=== PATIENT | male | born 1985 | race Caucasian/White ===

== ENCOUNTER 2020-11-18 12:57 | Inpatient (IN) | payer OTHER ==
[~2020-11-18] VITALS: Ht 198.1 cm; Wt 104.1 kg
[2020-11-18 13:30] LABS: ALANINE AMINOTRANSFERASE 22 U/L (0-55); ALBUMIN 3.8 GM/DL (3.2-4.5); ALKALINE PHOSPHATASE 62 U/L (40-136); BILIRUBIN,TOTAL 0.5 MG/DL (0.1-1.0); BUN/CREATININE RATIO 20; CALCIUM 8.8 MG/DL (8.5-10.1); CARBON DIOXIDE 21 MMOL/L (21-32); CHLORIDE 103 MMOL/L (98-107); CREATININE SERUM 2.61 MG/DL (0.60-1.30); GFR ESTIMATED 28; GLUCOSE 140 MG/DL (70-105); POTASSIUM 4.6 MMOL/L (3.6-5.0); SODIUM 139 MMOL/L (135-145); TOTAL PROTEIN 5.8 GM/DL (6.4-8.2)
[2020-11-18 13:33] LABS: BASOPHILS % (AUTO) 0 % (0-10); EOSINOPHILS % (AUTO) 0 % (0-10); HEMATOCRIT 30 % (40-54); HEMOGLOBIN 10.7 G/DL (13.3-17.7); LYMPHOCYTES # (AUTO) 2.7 X 10^3 (1.0-4.0); LYMPHOCYTES % (AUTO) 11 % (12-44); MEAN CORPUSCULAR HEMOGLOBIN 31 PG (25-34); MEAN CORPUSCULAR HGB CONC 35 G/DL (32-36); MEAN CORPUSCULAR VOLUME 87 FL (80-99); MEAN PLATELET VOLUME 10.5 FL (7.4-10.4); MONOCYTES % (AUTO) 11 % (0-12); NEUTROPHILS # (AUTO) 19.4 X 10^3 (1.8-7.8); NEUTROPHILS % (AUTO) 77 % (42-75); PLATELET COUNT 241 10^3/uL (130-400); WHITE BLOOD COUNT 25.1 10^3/uL (4.3-11.0)
--- NOTE | 2020-11-18 13:33 | ED General ---
General Chief Complaint: Psych/Social Disorder Stated Complaint: SUICIDE ATTEMPT Source of Information: Patient History of Present Illness Date Seen by Provider: November 18, 2020 Time Seen by Provider: 12:40 Initial Comments Patient is a 35-year-old right-handed male who presents 2 days post suicide attempt with 14 cm deep gaping laceration distribution with central forearm forearm. Patient states he consult 2 days ago and attempt to end his life. He initially cut himself in the bathroom and then passed out on the way going to his bedroom. He did not awake until this morning at which time he contacted EMS. Patient reports dizziness and lightheadedness. He is tachycardic at 113 and mildly hypotensive with a systolic blood pressure 108. He denies taking alcohol or coingestants at time of suicide attempt. He states he lost a considerable amount of blood prior to passing out. No other acute symptoms or complaints. Timing/Duration: 2-3 Days Severity: Moderate Modifying Factors: improves with Other Associated Systoms: Other Allergies and Home Medications Allergies Coded Allergies: No Known Drug Allergies (Unverified , 11/18/20) Patient Home Medication List Home Medication List Reviewed: Yes Review of Systems Review of Systems Constitutional: see HPI EENTM: see HPI Respiratory: see HPI Cardiovascular: see HPI Gastrointestinal: see HPI Genitourinary: see HPI Musculoskeletal: see HPI Skin: see HPI Psychiatric/Neurological: See HPI Hematologic/Lymphatic: See HPI Immunological/Allergic: see HPI All Other Systems Reviewed Negative Unless Noted: Yes Past Srnxggx-Dhcraj-Fdatmj Hx Past Med/Social Hx: Reviewed Nursing Past Med/Soc Hx Physical Exam Vital Signs Vital Signs - First Documented 11/18/20 13:00 Temp 36.8 Pulse 120 Resp 16 B/P (MAP) 104/58 (73) Pulse Ox 100 O2 Delivery Room Air Capillary Refill : Height, Weight, BMI Height: '" Weight: lbs. oz. 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 Norm as Tested Skin: Normal Color Lymphatic: No Adenopathy Focused Exam Sepsis Stage: Sepsis Possible Source: Skin/Soft Tissue Lactate Level 11/18/20 14:50: Lactic Acid Level 3.94*H Time of Focused Exam: 13:00 Respiratory: Lungs Clear Cardiovascular: Tachycardia Capillary Refill: NONE Skin: other Lactic Acid Level Laboratory Tests Test 11/18/20 14:50 Lactic Acid Level 3.94 MMOL/L (0.50-2.00) *H Within 3hrs of presentation: Admin fluids, Admin ABX, Blood cultures prior to ABX's, Focus exam, Lactate level Progress/Results/Core Measures Suspected Sepsis SIRS Temperature: Pulse: Respiratory Rate: Laboratory Tests 11/18/20 13:02: White Blood Count 25.1H Blood Pressure / Mean: 11/18/20 14:50: Lactic Acid Level 3.94*H Laboratory Tests 11/18/20 13:02: Creatinine 2.61H, Platelet Count 241, Total Bilirubin 0.5 Results/Orders Lab Results Laboratory Tests Test 11/18/20 13:02 11/18/20 13:20 11/18/20 14:50 Range/Units White Blood Count 25.1 H 4.3-11.0 10^3/uL Red Blood Count 3.48 L 4.35-5.85 10^6/uL Hemoglobin 10.7 L 13.3-17.7 G/DL Hematocrit 30 L 40-54 % Mean Corpuscular Volume 87 80-99 FL Mean Corpuscular Hemoglobin 31 25-34 PG Mean Corpuscular Hemoglobin Concent 35 32-36 G/DL Red Cell Distribution Width 12.8 10.0-14.5 % Platelet Count 241 130-400 10^3/uL Mean Platelet Volume 10.5 H 7.4-10.4 FL Immature Granulocyte % (Auto) 1 % Neutrophils (%) (Auto) 77 H 42-75 % Lymphocytes (%) (Auto) 11 L 12-44 % Monocytes (%) (Auto) 11 0-12 % Eosinophils (%) (Auto) 0 0-10 % Basophils (%) (Auto) 0 0-10 % Neutrophils # (Auto) 19.4 H 1.8-7.8 X 10^3 Lymphocytes # (Auto) 2.7 1.0-4.0 X 10^3 Monocytes # (Auto) 2.7 H 0.0-1.0 X 10^3 Eosinophils # (Auto) 0.0 0.0-0.3 10^3/uL Basophils # (Auto) 0.0 0.0-0.1 10^3/uL Immature Granulocyte # (Auto) 0.2 H 0.0-0.1 10^3/uL Neutrophils % (Manual) 80 % Lymphocytes % (Manual) 9 % Monocytes % (Manual) 9 % Band Neutrophils 2 % Hypochromasia 1+ Sodium Level 139 135-145 MMOL/L Potassium Level 4.6 3.6-5.0 MMOL/L Chloride Level 103 98-107 MMOL/L Carbon Dioxide Level 21 21-32 MMOL/L Anion Gap 15 H 5-14 MMOL/L Blood Urea Nitrogen 53 H 7-18 MG/DL Creatinine 2.61 H 0.60-1.30 MG/DL Estimat Glomerular Filtration Rate 28 BUN/Creatinine Ratio 20 Glucose Level 140 H 70-105 MG/DL Calcium Level 8.8 8.5-10.1 MG/DL Corrected Calcium 9.0 8.5-10.1 MG/DL Total Bilirubin 0.5 0.1-1.0 MG/DL Aspartate Amino Transf (AST/SGOT) 17 5-34 U/L Alanine Aminotransferase (ALT/SGPT) 22 0-55 U/L Alkaline Phosphatase 62 40-136 U/L Total Creatine Kinase 201 H 30-200 U/L Total Protein 5.8 L 6.4-8.2 GM/DL Albumin 3.8 3.2-4.5 GM/DL Serum Alcohol < 10 <10 MG/DL Urine Opiates Screen NEGATIVE NEGATIVE Urine Oxycodone Screen NEGATIVE NEGATIVE Urine Methadone Screen NEGATIVE NEGATIVE Urine Propoxyphene Screen NEGATIVE NEGATIVE Urine Barbiturates Screen NEGATIVE NEGATIVE Ur Tricyclic Antidepressants Screen NEGATIVE NEGATIVE Urine Phencyclidine Screen NEGATIVE NEGATIVE Urine Amphetamines Screen NEGATIVE NEGATIVE Urine Methamphetamines Screen NEGATIVE NEGATIVE Urine Benzodiazepines Screen NEGATIVE NEGATIVE Urine Cocaine Screen NEGATIVE NEGATIVE Urine Cannabinoids Screen NEGATIVE NEGATIVE Lactic Acid Level 3.94 *H 0.50-2.00 MMOL/L My Orders Orders - DEANDRE PICKETT DO Cbc With Automated Diff (11/18/20 13:04) Comprehensive Metabolic Panel (11/18/20 13:04) Drug Screen Stat (Urine) (11/18/20 13:04) Alcohol (11/18/20 13:04) Creatine Kinase (11/18/20 13:05) Ekg Tracing (11/18/20 13:08) Manual Differential (11/18/20 13:02) Ns Iv 1000 Ml (Sodium Chloride 0.9%) (11/18/20 14:30) Lactic Acid Analyzer (11/18/20 14:24) Blood Culture (11/18/20 14:24) Piperacillin Sodium/Tazobactam (Zosyn Vi (11/18/20 14:30) Ns Iv 1000 Ml (Sodium Chloride 0.9%) (11/18/20 15:00) Blood Culture (11/18/20 14:52) Ns Iv 1000 Ml (Sodium Chloride 0.9%) (11/18/20 15:30) Vancomycin Injection (Vancomycin Injecti (11/18/20 15:45) Medications Given in ED Current Medications Medications Dose Ordered Sig/Iris Route Start Time Stop Time Status Last Admin Dose Admin Piperacillin Sod/ Tazobactam Sod 4.5 gm/Sodium Chloride 100 ml @ 200 mls/hr ONCE ONCE IV 11/18/20 14:30 11/18/20 14:59 DC 11/18/20 15:03 200 MLS/HR Vital Signs/I&O 11/18/20 13:00 Temp 36.8 Pulse 120 Resp 16 B/P (MAP) 104/58 (73) Pulse Ox 100 O2 Delivery Room Air Capillary Refill : Departure Communication (Admissions) Patient with approximately 14 cm left forearm wound with concern for cellulitis. Patient with 25,000 white count, left shift and elevated lactic acid with acute kidney injury. Aggressive IV fluids and broad-spectrum antibiotics given. Patient is clinically stable. No longer voices threats of self-harm. He is excepted to [facility] ICU per Dr. Mar at 15:30. Pseudomonal Risk: No known risk Impression Primary Impression: Severe sepsis Additional Impressions: Cellulitis of left forearm Acute kidney injury Suicidal ideation Disposition: 09 ADMITTED INPATIENT Condition: Stable Admissions Decision to Admit Reason: Admit from ER (General) Decision to Admit/Date: November 18, 2020 Time/Decision to Admit Time: 15:30 DEANDRE PICKETT DO November 18, 2020 13:33
[2020-11-18 13:34] LABS: MONOCYTES # (AUTO) 2.7 X 10^3 (0.0-1.0)
[2020-11-18 13:48] LABS: AMPHETAMINE SCREEN, URINE NEGATIVE (NEGATIVE); BARBITURATE SCREEN URINE NEGATIVE (NEGATIVE); BENZODIAZEPINES SCREEN URINE NEGATIVE (NEGATIVE); CANNABINOID SCREEN, URINE NEGATIVE (NEGATIVE); COCAINE SCREEN URINE NEGATIVE (NEGATIVE); METHADONE STAT NEGATIVE (NEGATIVE); METHAMPHETAMINE SCREEN URINE S NEGATIVE (NEGATIVE); OPIATE SCREEN URINE NEGATIVE (NEGATIVE); OXYCODONE STAT NEGATIVE (NEGATIVE); PROPOXYPHENE STAT NEGATIVE (NEGATIVE); TRICYCLIC ANTIDEPRESSANTS SCRE NEGATIVE (NEGATIVE)
[2020-11-18 13:54] LABS: BAND NEUTROPHILS 2 %; LYMPHOCYTES % (MANUAL) 9 %; MONOCYTES % (MANUAL) 9 %; NEUTROPHILS % (MANUAL) 80 %
[2020-11-18 13:55] LABS: HYPOCHROMASIA 1+
[2020-11-18] MEDS ORDERED: PIPERACILLIN SODIUM/TAZOBACTAM 4.5 GM in NS (IVPB) 100 ML IV ONE (14:30)
[2020-11-18] MEDS ORDERED: NS IV 1000 ML 1,000 ML IV SCH ×3 (15:00→18:30)
[2020-11-18] MEDS: NS IV 1000 ML 1,000 ML IV SCH ×2 (15:02→16:10)
[2020-11-18 15:06] LABS: CREATINE KINASE 201 U/L (30-200)
[2020-11-18] MEDS ORDERED: VANCOMYCIN INJECTION 1,000 MG in NS (IVPB) 250 ML IV ONE (15:45)
[2020-11-18] MEDS ORDERED: VANCOMYCIN 750 MG/NS 250 ML IVPB IV NR ×2 (18:30)
[2020-11-18] MEDS: PIPERACILLIN/TAZO 4.5 GM/NS 100 ML IV SCH ×2 (22:06)
[2020-11-18] MEDS: LACTATED RINGERS 1,000 ML IV SCH ×2 (22:06→23:48)
[2020-11-19] MEDS: LACTATED RINGERS 1,000 ML IV SCH ×4 (02:11→18:37)
[2020-11-19 03:37] LABS: BASOPHILS % (AUTO) 0 % (0-10); EOSINOPHILS # (AUTO) 0.1 10^3/uL (0.0-0.3); EOSINOPHILS % (AUTO) 1 % (0-10); HEMATOCRIT 22 % (40-54); HEMOGLOBIN 7.3 g/dL (13.3-17.7); LYMPHOCYTES # (AUTO) 2.3 10^3/uL (1.0-4.0); LYMPHOCYTES % (AUTO) 20 % (12-44); MEAN CORPUSCULAR HEMOGLOBIN 30 pg (25-34); MEAN CORPUSCULAR HGB CONC 34 g/dL (32-36); MEAN CORPUSCULAR VOLUME 90 fL (80-99); MEAN PLATELET VOLUME 10.3 fL (9.0-12.2); MONOCYTES # (AUTO) 0.9 10^3/uL (0.0-1.0); MONOCYTES % (AUTO) 8 % (0-12); NEUTROPHILS % (AUTO) 70 % (42-75); PLATELET COUNT 148 10^3/uL (130-400); WHITE BLOOD COUNT 11.5 10^3/uL (4.3-11.0)
[2020-11-19 03:51] LABS: CHLORIDE 111 MMOL/L (98-107); POTASSIUM 4.2 MMOL/L (3.6-5.0); SODIUM 141 MMOL/L (135-145)
[2020-11-19 03:53] LABS: CALCIUM 7.3 MG/DL (8.5-10.1); GLUCOSE 103 MG/DL (70-105)
[2020-11-19 03:55] LABS: CARBON DIOXIDE 22 MMOL/L (21-32)
[2020-11-19 03:57] LABS: CREATININE SERUM 1.17 MG/DL (0.60-1.30); GFR ESTIMATED > 60; PHOSPHORUS 2.6 MG/DL (2.3-4.7)
[2020-11-19 03:58] LABS: BUN/CREATININE RATIO 25
[2020-11-19 03:59] LABS: MAGNESIUM 1.6 MG/DL (1.6-2.4)
--- NOTE | 2020-11-19 05:18 | Pulmonary Consultation ---
History of Present Illness History of Present Illness Date Seen by Provider: November 19, 2020 Time Seen by Provider: 05:14 Date of Admission History of Present Illness 35yo presented 2 days post suicide attempt with 14 cm deep gaping laceration distribution with central forearm forearm. He initially cut himself in the bathroom and then passed out on the way going to his bedroom. When he woke up he contacted EMS. Allergies and Home Medications Allergies Coded Allergies: No Known Drug Allergies (Unverified , 11/18/20) Home Medications No Active Prescriptions or Reported Meds Past Cumorek-Eaqeko-Oebajg Hx Past Med/Social Hx: Reviewed Nursing Past Med/Soc Hx Patient Social History Alcohol Use: Occasionally Uses Smoking Status: Never a Smoker 2nd Hand Smoke Exposure: No Recent Infectious Disease Expo: No Recent Hopitalizations: No Have you traveled recently?: No Alcohol Use?: Yes Seasonal Allergies Seasonal Allergies: No Past Medical History Surgeries: Yes Appendectomy Respiratory: No Cardiac: No Neurological: No Genitourinary: No Gastrointestinal: No Musculoskeletal: No Endocrine: No HEENT: No Cancer: No Psychosocial: No Integumentary: No Review of Systems Time Seen by Provider: 05:14 Sepsis Event Evaluation Height, Weight, BMI Height: '" Weight: lbs. oz. kg; 23.85 BMI Method: Exam Exam Vital Signs Date Time Temp Pulse Resp B/P (MAP) Pulse Ox O2 Delivery O2 Flow Rate FiO2 11/19/20 05:00 91 25 103/48 (66) 95 Room Air 11/19/20 04:00 78 18 105/53 (70) 99 Room Air 11/19/20 04:00 98 Room Air 11/19/20 03:00 81 18 97/50 (66) 99 Room Air 11/19/20 02:00 82 17 103/48 (66) 99 Room Air 11/19/20 01:00 85 16 109/54 (72) 99 Room Air 11/19/20 01:00 79 11/19/20 00:00 87 20 108/55 (72) 100 Room Air 11/19/20 00:00 96 Room Air 11/18/20 23:00 90 17 97/53 (68) 97 Room Air 11/18/20 22:00 89 16 97/54 (68) 96 Room Air 11/18/20 21:00 90 18 106/57 (73) 99 Room Air 11/18/20 20:00 97 Room Air 11/18/20 20:00 90 20 112/61 (78) 100 Room Air 11/18/20 19:59 37.1 94 12 107/52 (70) 100 Room Air 11/18/20 19:00 89 14 105/51 (69) 98 Room Air 11/18/20 19:00 87 11/18/20 18:14 97 Room Air 11/18/20 18:00 93 10 109/51 (70) 99 Room Air 11/18/20 16:52 104 16 96/57 98 Room Air 11/18/20 13:00 36.8 120 16 104/58 (73) 100 Room Air I & O 11/19/20 07:00 Intake Total 1600 ml Output Total 600 ml Balance 1000 ml Height & Weight Height: '" Weight: lbs. oz. 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
[2020-11-19] MEDS: PIPERACILLIN/TAZO 4.5 GM/NS 100 ML IV SCH ×6 (05:50→20:57)
--- NOTE | 2020-11-19 07:28 | Diagnostic Imaging Report ---
INDICATION: Dyspnea. EXAMINATION: Portable chest. FINDINGS: The lungs are well-aerated and clear. The heart is not enlarged. No pulmonary edema or hilar adenopathy. No pneumothorax or pleural effusion. No bony abnormalities. IMPRESSION: Normal portable chest. Dictated by: Dictated on workstation # [id number]
[2020-11-19] MEDS: MAGNESIUM 1 GM/100 ML IVPB 100 ML IV SCH (08:11)
--- NOTE | 2020-11-19 09:00 | History & Physical-Hospitalist ---
History of Present Illness HPI/Chief Complaint Pt is a 35yoCM with no known PMH who presented to the ER after a self inflicted laceration in an attempt to kill himself. He states that Tuesday (11/16) he was feeling down and decided he wanted to end his life. He cut his arm deeply. He states he was in and out of consciousness because of the blood loss but awoke and decided to seek care. On arrival he was quite dehydrated and has lost a significant amount of blood. He was also found ot be septic and admitted for IV abx. Today he has no complaints. He denies any thoughts of self harm now. Source: patient Date Seen 11/19/20 Time Seen by a Provider: 08:56 Attending Physician Eber Mar MD PCP No,Local Physician Referring Physician Date of Admission November 18, 2020 at 17:31 Home Medications & Allergies Home Medications Reviewed patient Home Medication Reconciliation performed by pharmacy medication reconciliations cnc technician and/or nursing. Patients Allergies have been reviewed. Allergies Allergies Coded Allergies No Known Drug Allergies (Unverified11/18/20) Patient Social History Marrital Status: single Tobacco Use?: No Smoking Status: Never a Smoker Alcohol Use?: Yes Alcohol type: Beer Alcohol Frequency: Once in a while Pt stated abuse/neglect: No Immunizations Up To Date Influenza Vaccine Up-to-Date: No; Not Current First/Initial COVID19 Vaccinat: Has not received Tetanus Booster (TDap): Less Than 5 Years Current Status Do you have an Advance Directi: No Communicates: Verbally Primary Language: Lithuanian Preferred Spoken Language: Lithuanian Is interpretation needed?: No Past Medical History None Family Medical History Family Hx: Non contributory Review of Systems Constitutional: No chills, No fever EENTM: other (sneezing); No nose congestion, No throat pain Respiratory: No cough, No short of breath Cardiovascular: No chest pain, No edema, No palpitations Gastrointestinal: No abdominal pain, No constipation, No nausea, No vomiting Genitourinary: No dysuria, No frequency Musculoskeletal: no symptoms reported Skin: see HPI Psychiatric/Neurological: See HPI Physical Exam Physical Exam Vital Signs Vital Signs - First Documented 11/18/20 13:00 Temp 36.8 Pulse 120 Resp 16 B/P (MAP) 104/58 (73) Pulse Ox 100 O2 Delivery Room Air Capillary Refill : Less Than 3 Seconds Height, Weight, BMI Height: '" Weight: lbs. oz. kg; 23.85 BMI Method: General Appearance: No Apparent Distress, WD/WN HEENT: PERRL/EOMI, Moist Mucous Membranes Neck: Normal Inspection, Supple Respiratory: Lungs Clear, No Accessory Muscle Use, No Respiratory Distress Cardiovascular: Regular Rate, Rhythm, No Murmur Gastrointestinal: Normal Bowel Sounds, Non Tender, Soft Extremity: No Calf Tenderness, No Pedal Edema, Other (dressing on left forearm, clean and intact) Neurologic/Psychiatric: Alert, Oriented x3 Skin: Normal Color, Warm/Dry Results Results/Procedures Labs Laboratory Tests 11/18/20 13:02 11/19/20 03:10 11/20/20 05:30 Patient resulted labs reviewed. Imaging: Reviewed Imaging Report [facility] [place], [place] NAME: AVA MEHTA [facility] REC#: [id number] PT STATUS: ADM IN : 1985 PHYSICIAN: EBER MAR MD ADMIT DATE: 11/18/20/ICU Draft Date of Exam:11/19/20 CHEST 1 VIEW, AP/PA ONLY INDICATION: Dyspnea. EXAMINATION: Portable chest. FINDINGS: The lungs are well-aerated and clear. The heart is not enlarged. No pulmonary edema or hilar adenopathy. No pneumothorax or pleural effusion. No bony abnormalities. IMPRESSION: Normal portable chest. Dictated on workstation # [id number] Dict: 11/19/20 0722 Trans: 11/19/20 0728 [id number] Interpreted by: VICKY MARTINEZ MD Electronically signed by: Assessment/Plan Admission Diagnosis Severe Sepsis Admission Status: Inpatient Order (span 2 midnights) Reason for Inpatient Admission: see below Assessment and Plan Severe Sepsis Dehydration FAYE Left forearm cellulitis Continue on IV abx Await cultures Lactic acidosis 3.94 on arrival and now resolved Creatinine improved to 1.17 Surgery consulted, appreciate recs Suicide attempt If labs continue to improve will likely be medically appropriate for screening 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
[2020-11-19] MEDS: VANCOMYCIN 1500 MG/NS 500 ML IVPB IV SCH ×4 (09:30→20:30)
[2020-11-19] MEDS ORDERED: VANCOMYCIN 1500 MG/NS 500 ML IVPB IV SCH ×2 (16:00)
--- NOTE | 2020-11-19 20:32 | Consultation - Surgery ---
History of Present Illness History of Present Illness Patient Consulted On(sherine/time) 11/19/20 08:26 Date Seen by Provider: November 19, 2020 Time Seen by Provider: 08:26 History of Present Illness Consult requested by Dr. Mar for self-inflicted laceration to the left forearm Patient is a 35-year-old male who presented to the emergency department in [place] with a self-inflicted laceration to his left forearm. Patient attempted to kill himself. Patient states that he is having financial issues and felt that it was much easier to take his life rather than to continue on. Patient cut his arm deeply with a razor blade and apparently was in and out of cons ciousness. He states that he lost a significant amount of blood due to the bleeding from the wound. When he woke up he decided to call for help and was taken to the emergency department. Right now he denies any ideas of hurting himself. He is got no active bleeding from the left arm. He was found to be septic upon admission and IV biotics were started. He denies any nausea vo miting fever sweats chills shortness of breath or chest pain. Allergies and Home Medications Allergies Coded Allergies: No Known Drug Allergies (Unverified , 11/18/20) Home Medications No Active Prescriptions or Reported Meds Patient Home Medication List Home Medication List Reviewed: Yes Past Iyeprjo-Oioupr-Lmopth Hx Patient Social History Smoking Status: Never a Smoker 2nd Hand Smoke Exposure: No Recent Hopitalizations: No Alcohol Use?: Yes Have you traveled recently?: No Seasonal Allergies Seasonal Allergies: No Surgeries History of Surgeries: Yes Surgeries: Appendectomy Respiratory History of Respiratory Disorde: No Cardiovascular History of Cardiac Disorders: No Neurological History of Neurological Disord: No Genitourinary History of Genitourinary Disor: No Gastrointestinal History of Gastrointestinal Di: No Musculoskeletal History of Musculoskeletal Dis: No Endocrine History of Endocrine Disorders: No HEENT History of HEENT Disorders: No Cancer History of Cancer: No Psychosocial History of Psychiatric Problem: Yes Behavioral Health Disorders: Suicide Attempts Integumentary History of Skin or Integumenta: No Reviewed Nursing Assessment Reviewed/Agree w Nursing PMH: Yes Family Medical History Significant Family History: No Pertinent Family Hx Review of Systems-General Constitutional: No chills, No diaphoresis EENTM: No blurred vision, No double vision Respiratory: No cough, No dyspnea on exertion Cardiovascular: No chest pain, No edema Gastrointestinal: No abdominal pain, No dysphagia Genitourinary: No decreased output, No discharge Musculoskeletal: No back pain, No joint pain Skin: No change in color, No change in hair/nails; other (Open wound left anterior forearm) Psychiatric/Neurological: Denies Anxiety; Depressed All Other Systems Reviewed Negative Unless Noted: Yes (Negative excepted noted.) Physical Exam-General Problems Physical Exam Vital Signs Vital Signs - First Documented 11/18/20 13:00 Temp 36.8 Pulse 120 Resp 16 B/P (MAP) 104/58 (73) Pulse Ox 100 O2 Delivery Room Air Capillary Refill : Less Than 3 Seconds General Appearance: WD/WN, no apparent distress HEENT: PERRL/EOMI, normal ENT inspection Neck: non-tender, supple Respiratory: chest non-tender, no respiratory distress, no accessory muscle use Cardiovascular: regular rate, rhythm, no JVD Gastrointestinal: non tender, soft, no organomegaly Rectal: deferred Back: no CVA tenderness, no vertebral tenderness Extremities: other (Approximately 14 x 2 cm open wound all the way through skin into the subcutaneous tissue. No surrounding erythema no drainage) Skin: normal color Lymphatic: no adenopathy Data Review Labs Laboratory Tests 11/19/20 03:10: White Blood Count 11.5H, Red Blood Count 2.40L, Hemoglobin 7.3L, Hematocrit 22L, Mean Corpuscular Volume 90, Mean Corpuscular Hemoglobin 30, Mean Corpuscular Hemoglobin Concent 34, Red Cell Distribution Width 12.8, Platelet Count 148, Mean Platelet Volume 10.3, Immature Granulocyte % (Auto) 1, Neutrophils (%) (Auto) 70, Lymphocytes (%) (Auto) 20, Monocytes (%) (Auto) 8, Eosinophils (%) (Auto) 1, Basophils (%) (Auto) 0, Neutrophils # (Auto) 8.0H, Lymphocytes # (Auto) 2.3, Monocytes # (Auto) 0.9, Eosinophils # (Auto) 0.1, Basophils # (Auto) 0.0, Immature Granulocyte # (Auto) 0.1, Sodium Level 141, Potassium Level 4.2, Chloride Level 111H, Carbon Dioxide Level 22, Anion Gap 8, Blood Urea Nitrogen 29H, Creatinine 1.17, Estimat Glomerular Filtration Rate > 60, BUN/Creatinine Ratio 25, Glucose Level 103, Calcium Level 7.3L, Phosphorus Level 2.6, Magnesium Level 1.6 Microbiology 11/18/20 Blood Culture - Preliminary, Resulted No growth Assessment/Plan Assessment/Plan Assessment/Plan Suicide attempt Self-inflicted open wound to left anterior forearm 14 x 2 cm Patient with no active bleeding or signs of infection to the wound at this time. We will continue with localized wound care changing dressing daily and as needed. No surgical intervention needed at this time. Clinical Quality Measures Pneumonia: Pseudomonal Risk: No known risk FREDIS SOUSA DO November 19, 2020 20:31
[2020-11-20] MEDS: PIPERACILLIN/TAZO 4.5 GM/NS 100 ML IV SCH ×6 (04:42→20:15)
[2020-11-20] MEDS: LACTATED RINGERS 1,000 ML IV SCH ×4 (04:42→21:45)
[2020-11-20 06:20] LABS: BASOPHILS % (AUTO) 0 % (0-10); EOSINOPHILS # (AUTO) 0.1 10^3/uL (0.0-0.3); EOSINOPHILS % (AUTO) 1 % (0-10); LYMPHOCYTES # (AUTO) 2.1 10^3/uL (1.0-4.0); LYMPHOCYTES % (AUTO) 25 % (12-44); MEAN CORPUSCULAR HEMOGLOBIN 30 pg (25-34); MEAN CORPUSCULAR HGB CONC 34 g/dL (32-36); MEAN CORPUSCULAR VOLUME 91 fL (80-99); MEAN PLATELET VOLUME 10.6 fL (9.0-12.2); MONOCYTES # (AUTO) 0.7 10^3/uL (0.0-1.0); MONOCYTES % (AUTO) 9 % (0-12); NEUTROPHILS # (AUTO) 5.3 10^3/uL (1.8-7.8); NEUTROPHILS % (AUTO) 64 % (42-75); PLATELET COUNT 132 10^3/uL (130-400); WHITE BLOOD COUNT 8.2 10^3/uL (4.3-11.0)
[2020-11-20 06:28] LABS: CHLORIDE 110 MMOL/L (98-107); POTASSIUM 3.9 MMOL/L (3.6-5.0); SODIUM 139 MMOL/L (135-145)
[2020-11-20 06:29] LABS: CALCIUM 7.6 MG/DL (8.5-10.1)
[2020-11-20 06:30] LABS: GLUCOSE 97 MG/DL (70-105)
[2020-11-20 06:31] LABS: CARBON DIOXIDE 24 MMOL/L (21-32)
[2020-11-20 06:33] LABS: HEMATOCRIT 19 % (40-54); HEMOGLOBIN 6.4 g/dL (13.3-17.7); PHOSPHORUS 2.5 MG/DL (2.3-4.7)
[2020-11-20 06:34] LABS: CREATININE SERUM 0.93 MG/DL (0.60-1.30); GFR ESTIMATED > 60
[2020-11-20 06:35] LABS: BUN/CREATININE RATIO 16
[2020-11-20 06:36] LABS: MAGNESIUM 1.8 MG/DL (1.6-2.4)
[2020-11-20] MEDS ORDERED: NS IV 500 ML 500 ML IV SCH ×2 (07:30)
[2020-11-20] MEDS ORDERED: TROUGH ORDER-PHARMACY XX NR (08:00)
[2020-11-20] MEDS ORDERED: NS IV 500 ML 500 ML ONE (08:48)
[2020-11-20 09:12] VITALS: BP 114/69
[2020-11-20 09:34] VITALS: BP 117/73
--- NOTE | 2020-11-20 09:34 | Progress Note - Hospitalist ---
Subjective HPI/CC On Admission Date Seen by Provider: November 20, 2020 Time Seen by Provider: 09:27 Pt is a 35yoCM with no known PMH who presented to the ER after a self inflicted laceration in an attempt to kill himself. He states that Tuesday (11/16) he was feeling down and decided he wanted to end his life. He cut his arm deeply. He states he was in and out of consciousness because of the blood loss but awoke and decided to seek care. On arrival he was quite dehydrated and has lost a significant amount of blood. He was also found ot be septic and admitted for IV abx. Today he has no complaints. He denies any thoughts of self harm now. Subjective/Events-last exam Pt reports doing well. Pain controlled. Discussed his blood count and need for transfusion and he is agreeable. Focused Exam Lactate Level 11/18/20 14:50: Lactic Acid Level 3.94*H 11/18/20 16:39: Lactic Acid Level 2.20*H 11/18/20 18:49: Lactic Acid Level 1.65 Time of Focused Exam: 13:00 Objective Exam Vital Signs Vital Signs Date Time Temp Pulse Resp B/P (MAP) Pulse Ox O2 Delivery O2 Flow Rate FiO2 11/20/20 09:12 36.6 86 14 114/69 99 Room Air Capillary Refill : Less Than 3 Seconds General Appearance: No Apparent Distress, WD/WN Respiratory: Lungs Clear, No Respiratory Distress Cardiovascular: Regular Rate, Rhythm, No Murmur Gastrointestinal: Soft Extremity: Other (arm still in dressing, clean and intact) Neurologic/Psychiatric: Alert, Oriented x3 Results/Procedures Lab Laboratory Tests 11/20/20 05:30 Patient resulted labs reviewed. Imaging: Reviewed Imaging Report Assessment/Plan Assessment and Plan Assess & Plan/Chief Complaint Severe Sepsis, resolved Dehydration FAYE Left forearm cellulitis Continue on IV abx BC with NGTD Creatinine improved to 0.93 Surgery consulted, appreciate recs Suicide attempt Will need blood transfusion so not able medical clear for screening cloud services architect consulted, appreciate assistance Patient open to resources Anemia- acute blood loss Hgb 6.4 1 unit pRBCS ordered DVT ppx: Lovenox on hold for anemia, SCDs Diagnosis/Problems Diagnosis/Problems (1) Suicide attempt Status: Acute (2) Self-inflicted injury Status: Acute (3) Cellulitis of left forearm Status: Acute (4) Severe sepsis Status: Acute (5) Acute kidney injury Status: Acute Clinical Quality Measures Pneumonia: Pseudomonal Risk: No known risk EBER FRANKEL MD November 20, 2020 09:34
[2020-11-20 10:27] VITALS: BP 117/73
[2020-11-20 11:32] VITALS: BP 112/69
[2020-11-20] MEDS: VANCOMYCIN 1500 MG/NS 500 ML IVPB IV SCH ×6 (11:45→21:45)
[2020-11-20] MEDS ORDERED: TETANUS & DIPHTHERIA TOX,ADULT 0.5 ML (TENIVAC) IM ONE (14:00)
--- NOTE | 2020-11-20 17:11 | Progress Note - Surgery ---
Subjective Date Seen by a Provider: November 20, 2020 Time Seen by a Provider: 13:01 Subjective/Events-last exam Patient states he is doing well. He is not having any active bleeding from his left arm. Patient states he is doing well no complaints. His hemoglobins dropped to 6.4 which is anemic but there is no evidence of any active bleeding. Patient denies any nausea vomiting fever sweats chills shortness of breath or chest pain. Not wanting to hurt himself now. Focused Exam Lactate Level 11/18/20 14:50: Lactic Acid Level 3.94*H 11/18/20 16:39: Lactic Acid Level 2.20*H 11/18/20 18:49: Lactic Acid Level 1.65 Time of Focused Exam: 13:00 Objective Exam Vital Signs Date Time Temp Pulse Resp B/P (MAP) Pulse Ox O2 Delivery O2 Flow Rate FiO2 11/20/20 16:19 36.6 96 20 94/53 (67) 98 Room Air 11/20/20 12:30 95 11/20/20 11:47 37.0 84 20 112/69 (83) 98 Room Air 11/20/20 11:46 88 16 98 Room Air 11/20/20 11:32 37.0 84 16 112/69 98 Room Air 11/20/20 10:27 36.4 88 15 117/73 98 Room Air 11/20/20 09:34 36.6 86 14 117/73 98 Room Air 11/20/20 09:12 36.6 86 14 114/69 99 Room Air 11/20/20 09:00 Room Air 11/20/20 07:29 36.8 87 20 112/67 (82) 94 Room Air 11/20/20 06:34 85 11/20/20 03:49 37.6 99 18 110/65 (80) 96 Room Air 11/20/20 01:00 90 11/20/20 00:00 38.0 95 18 113/65 (81) 94 Room Air 11/19/20 21:00 98 Room Air 11/19/20 19:36 37.3 99 18 119/54 (75) 96 Room Air I & O 11/20/20 06:59 Intake Total 1215 ml Output Total 850 ml Balance 365 ml Capillary Refill : Less Than 3 Seconds General Appearance: No Apparent Distress, WD/WN HEENT: PERRL/EOMI, Moist Mucous Membranes Neck: Normal Inspection, Supple Respiratory: Lungs Clear, No Accessory Muscle Use, No Respiratory Distress Cardiovascular: Regular Rate, Rhythm, No JVD Gastrointestinal: non tender, soft, no organomegaly Extremity: No Calf Tenderness, No Pedal Edema, Other (Left open wound no signs of infection no erythema around it. No active bleeding) Neurologic/Psychiatric: Alert, Oriented x3 Skin: Normal Color, Warm/Dry Lymphatic: No Adenopathy Results Lab Laboratory Tests 11/20/20 05:30: White Blood Count 8.2, Red Blood Count 2.11L, Hemoglobin 6.4*L, Hematocrit 19*L, Mean Corpuscular Volume 91, Mean Corpuscular Hemoglobin 30, Mean Corpuscular Hemoglobin Concent 34, Red Cell Distribution Width 12.8, Platelet Count 132, Mean Platelet Volume 10.6, Immature Granulocyte % (Auto) 2, Neutrophils (%) (Auto) 64, Lymphocytes (%) (Auto) 25, Monocytes (%) (Auto) 9, Eosinophils (%) (Auto) 1, Basophils (%) (Auto) 0, Neutrophils # (Auto) 5.3, Lymphocytes # (Auto) 2.1, Monocytes # (Auto) 0.7, Eosinophils # (Auto) 0.1, Basophils # (Auto) 0.0, Immature Granulocyte # (Auto) 0.1, Sodium Level 139, Potassium Level 3.9, Chloride Level 110H, Carbon Dioxide Level 24, Anion Gap 5, Blood Urea Nitrogen 15, Creatinine 0.93, Estimat Glomerular Filtration Rate > 60, BUN/Creatinine Ratio 16, Glucose Level 97, Calcium Level 7.6L, Phosphorus Level 2.5, Magnesium Level 1.8 11/20/20 09:10: Vancomycin Level Trough 12.0 Microbiology 11/18/20 Blood Culture - Preliminary, Resulted No growth Assessment/Plan Assessment/Plan Assessment/Plan Suicide attempt Self-inflicted open wound to left anterior forearm 14 x 2 cm Anemia secondary to acute blood loss. Patient with no active bleeding or signs of infection to the wound at this time. Patient anemic and to receive a unit of red blood cells. Follow hemoglobin. Transfuse as needed. We will continue with localized wound care changing dressing daily and as needed. No surgical intervention needed at this time. Clinical Quality Measures Pneumonia: Pseudomonal Risk: No known risk FREDIS SOUSA DO November 20, 2020 17:11
[2020-11-21] MEDS: PIPERACILLIN/TAZO 4.5 GM/NS 100 ML IV SCH ×4 (04:51→12:38)
[2020-11-21] MEDS: LACTATED RINGERS 1,000 ML IV SCH ×3 (04:52→18:47)
[2020-11-21 05:15] LABS: BASOPHILS % (AUTO) 0 % (0-10); EOSINOPHILS # (AUTO) 0.1 10^3/uL (0.0-0.3); EOSINOPHILS % (AUTO) 2 % (0-10); HEMATOCRIT 22 % (40-54); HEMOGLOBIN 7.4 g/dL (13.3-17.7); LYMPHOCYTES # (AUTO) 1.5 10^3/uL (1.0-4.0); LYMPHOCYTES % (AUTO) 27 % (12-44); MEAN CORPUSCULAR HEMOGLOBIN 30 pg (25-34); MEAN CORPUSCULAR HGB CONC 34 g/dL (32-36); MEAN CORPUSCULAR VOLUME 89 fL (80-99); MEAN PLATELET VOLUME 10.4 fL (9.0-12.2); MONOCYTES # (AUTO) 0.4 10^3/uL (0.0-1.0); MONOCYTES % (AUTO) 8 % (0-12); NEUTROPHILS # (AUTO) 3.5 10^3/uL (1.8-7.8); NEUTROPHILS % (AUTO) 62 % (42-75); PLATELET COUNT 143 10^3/uL (130-400); WHITE BLOOD COUNT 5.6 10^3/uL (4.3-11.0)
[2020-11-21 05:25] LABS: CHLORIDE 111 MMOL/L (98-107); POTASSIUM 3.9 MMOL/L (3.6-5.0); SODIUM 143 MMOL/L (135-145)
[2020-11-21 05:26] LABS: CALCIUM 7.9 MG/DL (8.5-10.1)
[2020-11-21 05:27] LABS: GLUCOSE 103 MG/DL (70-105)
[2020-11-21 05:28] LABS: CARBON DIOXIDE 25 MMOL/L (21-32)
[2020-11-21 05:30] LABS: CREATININE SERUM 0.86 MG/DL (0.60-1.30); GFR ESTIMATED > 60; PHOSPHORUS 3.1 MG/DL (2.3-4.7)
[2020-11-21 05:31] LABS: BUN/CREATININE RATIO 9
[2020-11-21 05:33] LABS: MAGNESIUM 1.8 MG/DL (1.6-2.4)
--- NOTE | 2020-11-21 06:53 | Diagnostic Imaging Report ---
INDICATION: Dyspnea. Comparison made with prior examination 11/19/2020. FINDINGS: The heart size is normal. Some right basilar atelectasis and/or pneumonitis. There is no pleural effusion or pneumothorax. Mediastinum is unremarkable. IMPRESSION: Right basilar atelectasis and/or pneumonitis. Dictated by: Dictated on workstation # [id number]
[2020-11-21 08:26] VITALS: BP 119/70
[2020-11-21] MEDS: VANCOMYCIN 1500 MG/NS 500 ML IVPB IV SCH ×4 (10:31→20:44)
[2020-11-21 11:50] VITALS: BP 115/72
--- NOTE | 2020-11-21 14:33 | Discharge Summary ---
Diagnosis/Chief Complaint Date of Admission November 18, 2020 at 17:31 Date of Discharge Discharge Date: November 21, 2020 Admission Diagnosis Severe Sepsis Primary Care No,Local Physician Discharge Diagnosis (1) Suicide attempt Status: Acute (2) Self-inflicted injury Status: Acute (3) Cellulitis of left forearm Status: Acute (4) Severe sepsis Status: Acute (5) Acute kidney injury Status: Acute Discharge Summary Procedures/Consulations Dr Mckeon- Surgery Discharge Physical Exam Allergies: Coded Allergies: No Known Drug Allergies (Unverified , 11/18/20) Vitals & I&Os Vital Signs Date Time Temp Pulse Resp B/P (MAP) Pulse Ox O2 Delivery O2 Flow Rate FiO2 11/21/20 23:00 36.9 89 20 131/60 (83) 100 Room Air General Appearance: No Apparent Distress, WD/WN Respiratory: Lungs Clear, No Respiratory Distress Cardiovascular: Regular Rate, Rhythm, No Murmur Neurologic/Psychiatric: Alert, Oriented x3 Hospital Course Pt was admitted duet o sepsis from laceration on rm that was self inflicted. He was treated with IV abx and seen by surgery. He did well and antibiotics were able to be deescalated to just oral Keflex with daily wet to dry dressing bishop es. He was quite anemic and was given 1 unit of pRBCs which increased his Hemoglobin appropriately. He was screened by mental health and was deemed appropriate for inpatient services. He was agreeable to go and transfer was arranged for [facility]. He was accepted by Dr Roberts. Labs (last 24 hrs) Laboratory Tests 11/21/20 12:55: SARS-CoV-2 RNA (RT-PCR) Not Detected Microbiology 11/18/20 Blood Culture - Preliminary, Resulted No growth Patient resulted labs reviewed. Pending Labs Imaging: Reviewed Imaging Report Discussion & Recommendations Discharge Planning: >30 minutes discharge planning Discharge Home Medications: Active Scripts Active Cephalexin 500 Mg Tablet 500 Mg PO BID Instructions to patient/family Please see electronic discharge instructions given to patient. Clinical Quality Measures Pneumonia: Pseudomonal Risk: No known risk EBER FRANKEL MD November 21, 2020 14:33
--- NOTE | 2020-11-21 14:43 | Discharge Summary ---
Diagnosis/Chief Complaint Date of Admission November 18, 2020 at 17:31 Date of Discharge Discharge Date: November 21, 2020 Admission Diagnosis Severe Sepsis Primary Care No,Local Physician Discharge Diagnosis (1) Suicide attempt Status: Acute (2) Self-inflicted injury Status: Acute (3) Cellulitis of left forearm Status: Acute (4) Severe sepsis Status: Acute (5) Acute kidney injury Status: Acute Discharge Summary Discharge Physical Exam Allergies: Coded Allergies: No Known Drug Allergies (Unverified , 11/18/20) Vitals & I&Os Vital Signs Date Time Temp Pulse Resp B/P (MAP) Pulse Ox O2 Delivery O2 Flow Rate FiO2 11/21/20 23:00 36.9 89 20 131/60 (83) 100 Room Air Hospital Course Labs (last 24 hrs) Laboratory Tests 11/21/20 12:55: SARS-CoV-2 RNA (RT-PCR) Not Detected Microbiology 11/18/20 Blood Culture - Preliminary, Resulted No growth Patient resulted labs reviewed. Pending Labs Imaging: Reviewed Imaging Report Discharge Home Medications: Active Scripts Active Cephalexin 500 Mg Tablet 500 Mg PO BID Instructions to patient/family Please see electronic discharge instructions given to patient. Clinical Quality Measures Pneumonia: Pseudomonal Risk: No known risk EBER FRANKEL MD November 21, 2020 14:43
[2020-11-21] MEDS ORDERED: CEPH500T PO (14:44)
[2020-11-21] MEDS ORDERED: TROUGH ORDER-PHARMACY XX NR (15:00)
[2020-11-21 15:57] VITALS: BP 114/69
[2020-11-21 19:29] VITALS: BP 121/80
[2020-11-21 23:00] VITALS: BP 131/60
== END 2020-11-21 23:20 | DRG 872 ==
LOC: ER FS 12:59 → ICU 17:31 → 4TH 11-19 10:55
PROVIDERS: ADMIT Family Medicine; ATTEND Family Medicine
DX: A41.9 Sepsis, unspecified organism (principal); L03.114 Cellulitis of left upper limb; N17.9 Acute kidney failure, unspecified; E87.2 Acidosis; D62 Acute posthemorrhagic anemia; Z20.822 Contact with and (suspected) exposure to COVID-19; R65.20 Severe sepsis without septic shock; S51.812A Laceration without foreign body of left forearm, initial encounter; X78.1XXA Intentional self-harm by knife, initial encounter; Y92.002 Bathroom of unspecified non-institutional (private) residence as the place of occurrence of the external cause; E86.0 Dehydration
CPT/HCPCS: 36415; 71045; 80048; 80053; 80202; 80306; 80320; 82550; 83605; 83735; 84100; 85007; 85025; 85027; 86850; 86900; 86901; 86920; 87040; 87635; 90714; 93005